=== PATIENT | female | born 2000 | race Caucasian/White ===

== ENCOUNTER 2022-08-26 19:04 | Emergency (ER) | payer SELFPAY ==
[2022-08-26] MEDS ORDERED: Dexamethasone 10 MG/ML SDV IVPUSH ONE (19:48)
[2022-08-26 21:05] LABS: CORONAVIRUS COVID-19 NAA NEGATIVE (NEGATIVE); INFLUENZA A NAA NEGATIVE (NEGATIVE); INFLUENZA B NAA NEGATIVE (NEGATIVE)
== END 2022-08-26 21:18 | disposition home or self-care (01) ==
LOC: MW.ED 19:04
DX: J03.90 Acute tonsillitis, unspecified (principal); Z20.822 Contact with and (suspected) exposure to COVID-19
CPT/HCPCS: 0240U; 87651; 96374; 99283; J1100; 99282

== ENCOUNTER 2023-05-22 11:10 | Emergency (ER) | payer MEDICAID ==
[2023-05-22 12:03] LABS: BASOPHILS PERCENT AUTO 0.4 % (0.0-1.5); EOSINOPHILS PERCENT AUTO 0.3 % (0.0-7.0); HEMATOCRIT 41.2 % (36.0-46.0); HEMOGLOBIN 12.8 g/dL (12.0-16.0); LYMPHOCYTES ABSOLUTE AUTO 2.1 K/uL (0.6-2.4); LYMPHOCYTES PERCENT AUTO 23.4 % (16.0-40.0); MEAN CORPUSCULAR HEMOGLOBIN 24.6 pg (27.0-32.0); MEAN CORPUSCULAR HGB CONC 31.1 g/dL (31.0-37.0); MEAN CORPUSCULAR VOLUME 79.2 fL (80.0-98.0); MONOCYTES ABSOLUTE AUTO 0.5 K/uL (0.0-0.8); MONOCYTES PERCENT AUTO 5.5 % (0.0-15.0); NEUTROPHILS ABSOLUTE AUTO 6.4 K/uL (1.4-5.7); NEUTROPHILS PERCENT AUTO 70.4 % (48.0-80.0); NRBC ABSOLUTE 0 K/uL; PLATELET COUNT,PLT 217 K/uL (150-400); WHITE BLOOD CELL COUNT,WBC 9.13 K/uL (4.0-11.0)
[2023-05-22 12:16] LABS: APPEARANCE,URINE SLT CLOUDY; COLOR,URINE RED; GLUCOSE,URINE NEGATIVE (NEGATIVE); KETONES,URINE NEGATIVE (NEGATIVE); LEUKOCYTE ESTERASE,URINE MODERATE (NEGATIVE); NITRITE,URINE POSITIVE (NEGATIVE); OCCULT BLOOD,URINE LARGE (NEGATIVE); PROTEIN,URINE 100 mg/dL (NEGATIVE); UROBILINOGEN,URINE 0.2 EU/dL (<2.0)
[2023-05-22 12:30] LABS: A/G RATIO 1.1 (0.9-1.6); ALBUMIN 3.9 g/dL (3.4-5.0); BILIRUBIN TOTAL 0.4 mg/dL (0.2-1.0); CARBON DIOXIDE,CO2 25.1 mmol/L (21.0-32.0); CREATININE 0.9 mg/dL (0.6-1.0); EST CRCL DRUG DOSING (CG) 97.23 mL/min; PROTEIN TOTAL,TP 7.5 g/dL (6.4-8.2)
[2023-05-22 12:34] LABS: BILIRUBIN,URINE SMALL (NEGATIVE)
[2023-05-22 12:42] LABS: EPITHELIAL CELLS,URINE OCCASIONAL (NONE-FEW); RBC,URINE 75-100 (0-2/HPF); SQUAMOUS EPITHELIAL CELLS,UR OCCASIONAL; WBC,URINE 50-75 (0-5/HPF)
[2023-05-22 12:43] LABS: BACTERIA,URINE FEW (NEGATIVE); HYALINE CASTS,URINE FEW (0-2/LPF); MUCUS,URINE MODERATE (NONE-MOD)
[2023-05-22] MEDS: Lidocaine 1% PF 2 ML SDV INJECT ONE (12:54)
[2023-05-22] MEDS: cefTRIAXone 1 GM Vial IM ONE (12:54)
[2023-05-22 13:27] LABS: CANDIDA DNA PROBE NEGATIVE (NEGATIVE); GARDNERELLA DNA PROBE POSITIVE (NEGATIVE); TRICHOMONAS DNA PROBE NEGATIVE (NEGATIVE)
[2023-05-22 13:50] LABS: C. TRACHOMATIS BY PCR NOT DETECTED; N. GONORRHOEAE BY PCR NOT DETECTED
== END 2023-05-22 13:17 | disposition home or self-care (01) ==
LOC: MW.ED 11:10
DX: N30.01 Acute cystitis with hematuria (principal); N76.0 Acute vaginitis
CPT/HCPCS: 36415; 80053; 81001; 84703; 85025; 87086; 87480; 87491; 87510; 87591; 87660; 96372; 99284; J0696; J3490